=== PATIENT | female | born 1970 | race Caucasian/White ===

== ENCOUNTER 2019-08-06 08:20 | Emergency (ER) | payer OTHER ==
[~2019-08-06] VITALS: Ht 172.7 cm; Wt 100.2 kg
[2019-08-06 08:24] VITALS: BP 138/103; Ht 172.7 cm; Wt 100.2 kg
== END 2019-08-06 09:11 | disposition home or self-care (01) ==
LOC: ED 08:20
DX: K08.89 Other specified disorders of teeth and supporting structures (principal); J45.909 Unspecified asthma, uncomplicated

== ENCOUNTER 2019-09-22 21:12 | Emergency (ER) | payer OTHER ==
[~2019-09-22] VITALS: Ht 172.7 cm; Wt 101.2 kg
[2019-09-22 21:17] VITALS: BP 137/90
== END 2019-09-22 22:26 | disposition home or self-care (01) ==
LOC: ED 21:12
DX: Z76.0 Encounter for issue of repeat prescription (principal); F41.9 Anxiety disorder, unspecified; J45.909 Unspecified asthma, uncomplicated

== ENCOUNTER 2019-10-14 21:53 | Emergency (ER) | payer OTHER ==
[~2019-10-14] VITALS: Ht 172.7 cm; Wt 102.5 kg
[2019-10-14 21:58] VITALS: Ht 172.7 cm; Wt 102.5 kg
[2019-10-14 22:37] VITALS: BP 144/71
== END 2019-10-14 22:37 | disposition home or self-care (01) ==
LOC: ED 21:53
DX: K04.7 Periapical abscess without sinus (principal); F41.9 Anxiety disorder, unspecified; J45.909 Unspecified asthma, uncomplicated; Z98.51 Tubal ligation status

== ENCOUNTER 2019-10-31 17:36 | Emergency (ER) | payer OTHER ==
[~2019-10-31] VITALS: Ht 175.3 cm; Wt 102.5 kg
[2019-10-31 17:56] VITALS: Ht 175.3 cm; Wt 102.5 kg
[2019-10-31 19:06] VITALS: BP 139/101
== END 2019-10-31 19:06 | disposition home or self-care (01) ==
LOC: ED 17:36
DX: K08.89 Other specified disorders of teeth and supporting structures (principal); R21 Rash and other nonspecific skin eruption; B02.9 Zoster without complications; J45.909 Unspecified asthma, uncomplicated; F41.9 Anxiety disorder, unspecified; Z98.51 Tubal ligation status

== ENCOUNTER 2019-12-05 16:21 | Emergency (ER) | payer OTHER ==
[~2019-12-05] VITALS: Ht 172.7 cm; Wt 105.2 kg
[2019-12-05 16:24] VITALS: Ht 172.7 cm; Wt 105.2 kg
[2019-12-05 17:16] LABS: BASOPHIL % 0.6 % (0-2); PLATELET COUNT 275 x10^3mcL (130-400); RED CELL DISTRIBUTION WIDTH 14.6 % (11.5-14.5)
[2019-12-05 17:46] LABS: ALBUMIN 3.6 g/dL (3.4-5.0); ALKALINE PHOSPHATASE 76 U/L (46-116); ALT/SGPT 17 U/L (14-59); AST/SGOT 16 U/L (15-37); BILIRUBIN TOTAL 0.28 mg/dL (0.20-1.00); CALCIUM 8.6 mg/dL (8.5-10.1); CARBON DIOXIDE 31.5 mmol/L (21-32); CHLORIDE SERUM 106 mmol/L (98-107); CREATININE SERUM 0.9 mg/dL (0.6-1.0); GFR1 > 60 mL/min; GLUCOSE SERUM 82 mg/dL (74-106); POTASSIUM SERUM 4.2 mmol/L (3.5-5.1); SODIUM SERUM 143 mmol/L (136-145); TOTAL PROTEIN, SERUM 7.2 g/dL (6.4-8.2)
[2019-12-05 17:54] LABS: FREE T4 0.73 ng/dL (0.76-1.46); FREE THYROXINE INDEX 2.5 ug/dL (1.4-4.5); T4(THYROXINE) 7.9 ug/dL (4.7-13.3)
[2019-12-05 18:13] LABS: T3 TOTAL 0.89 ng/mL
[2019-12-05 18:38] LABS: UA SPECIFIC GRAVITY >=1.030 (1.005-1.035); microscopic required? YES; urine erythrocyte 2+ (NEGATIVE)
[2019-12-05 19:13] LABS: AMPHETAMINE QUAL UR POSITIVE (See below)
[2019-12-05 19:40] VITALS: BP 125/74
== END 2019-12-05 19:40 | disposition home or self-care (01) ==
LOC: ED 16:21
PROVIDERS: Emergency Medicine
DX: R60.0 Localized edema (principal); J45.909 Unspecified asthma, uncomplicated; Z98.51 Tubal ligation status
CPT/HCPCS: 36415; 83880; 84439; Q0092

== ENCOUNTER 2020-01-11 13:10 | Emergency (ER) | payer OTHER ==
[~2020-01-11] VITALS: Ht 172.7 cm; Wt 103.9 kg
[2020-01-11 13:16] VITALS: BP 163/97; Ht 172.7 cm; Wt 103.9 kg
== END 2020-01-11 14:36 | disposition left against medical advice (07) ==
LOC: ED 13:10
DX: Z53.21 Procedure and treatment not carried out due to patient leaving prior to being seen by health care provider (principal)

== ENCOUNTER 2020-01-12 00:13 | Emergency (ER) | payer OTHER ==
[~2020-01-12] VITALS: Ht 170.2 cm; Wt 103.9 kg
[2020-01-12 00:20] VITALS: BP 146/98; Ht 170.2 cm; Wt 103.9 kg
== END 2020-01-12 01:20 | disposition home or self-care (01) ==
LOC: ED 00:13
DX: R21 Rash and other nonspecific skin eruption (principal); L29.9 Pruritus, unspecified; J45.909 Unspecified asthma, uncomplicated; Z98.51 Tubal ligation status; Z98.890 Other specified postprocedural states

== ENCOUNTER 2020-03-19 11:14 | Emergency (ER) | payer OTHER ==
[~2020-03-19] VITALS: Ht 172.7 cm; Wt 106.1 kg
[2020-03-19 11:19] VITALS: Ht 172.7 cm; Wt 106.1 kg
[2020-03-19 12:42] VITALS: BP 148/96
== END 2020-03-19 12:42 | disposition home or self-care (01) ==
LOC: ED 11:14
DX: K02.9 Dental caries, unspecified (principal); J45.909 Unspecified asthma, uncomplicated
CPT/HCPCS: J2270

== ENCOUNTER 2020-04-21 00:03 | Inpatient (IN) | payer OTHER ==
[~2020-04-21] VITALS: Ht 170.2 cm; Wt 120.2 kg
[2020-04-21 00:12] VITALS: Ht 170.2 cm; Wt 120.2 kg
[2020-04-21 00:37] LABS: BASOPHIL % 0 % (0-2); PLATELET COUNT 248 x10^3mcL (130-400); RED CELL DISTRIBUTION WIDTH 14.5 % (11.5-14.5)
[2020-04-21 00:50] LABS: CALCIUM 8.7 mg/dL (8.5-10.1); CARBON DIOXIDE 28.4 mmol/L (21-32); CHLORIDE SERUM 105 mmol/L (98-107); CREATININE SERUM 1.1 mg/dL (0.6-1.0); GFR1 55 mL/min; GLUCOSE SERUM 142 mg/dL (74-106); POTASSIUM SERUM 3.6 mmol/L (3.5-5.1); SODIUM SERUM 140 mmol/L (136-145)
[2020-04-21 00:54] LABS: ALBUMIN 3.8 g/dL (3.4-5.0); ALKALINE PHOSPHATASE 62 U/L (46-116); ALT/SGPT 23 U/L (14-59); AST/SGOT 16 U/L (15-37); BILIRUBIN TOTAL 0.52 mg/dL (0.20-1.00); C REACTIVE PROTEIN 1.4 mg/dL (<=0.9); TOTAL PROTEIN, SERUM 7.2 g/dL (6.4-8.2)
[2020-04-21 02:26] LABS: UA SPECIFIC GRAVITY >=1.030 (1.005-1.035); microscopic required? YES; urine erythrocyte NEGATIVE (NEGATIVE)
[2020-04-21 02:38] LABS: AMPHETAMINE QUAL UR POSITIVE (See below)
[2020-04-21] MEDS ORDERED: SILENOR6 MG PO (03:02)
[2020-04-21] MEDS ORDERED: ZOFRAN4 M3 PO (03:03)
[2020-04-21] MEDS ORDERED: IPRATROPIUM BRO15 M1 INH (03:04)
[2020-04-21] MEDS ORDERED: QVAR REDIHALE10.6 G1 INH (03:05)
[2020-04-21] MEDS ORDERED: PROAIR RES117 MCG/Ac INH (03:05)
[2020-04-21 04:30] LABS: CHOLESTEROL/HDL RATIO 3.2
[2020-04-21 04:37] LABS: FREE T4 1.06 ng/dL (0.76-1.46); FREE THYROXINE INDEX 2.9 ug/dL (1.4-4.5); T3 TOTAL 0.86 ng/mL; T4(THYROXINE) 9.1 ug/dL (4.7-13.3)
[2020-04-21 05:23] LABS: BASOPHIL % 0.6 % (0-2); PLATELET COUNT 219 x10^3mcL (130-400); RED CELL DISTRIBUTION WIDTH 14.1 % (11.5-14.5)
[2020-04-21 05:43] LABS: CALCIUM 8.1 mg/dL (8.5-10.1); CARBON DIOXIDE 27.3 mmol/L (21-32); CHLORIDE SERUM 109 mmol/L (98-107); CREATININE SERUM 0.9 mg/dL (0.6-1.0); GFR1 > 60 mL/min; GLUCOSE SERUM 132 mg/dL (74-106); POTASSIUM SERUM 4.2 mmol/L (3.5-5.1); SODIUM SERUM 140 mmol/L (136-145)
[2020-04-21 23:00] VITALS: BP 136/78
[2020-04-22 06:11] VITALS: BP 112/69
[2020-04-22 07:40] LABS: BASOPHIL % 0.4 % (0-2); PLATELET COUNT 206 x10^3mcL (130-400); RED CELL DISTRIBUTION WIDTH 14.3 % (11.5-14.5)
[2020-04-22 08:09] LABS: CALCIUM 7.5 mg/dL (8.5-10.1); CARBON DIOXIDE 23.7 mmol/L (21-32); CHLORIDE SERUM 111 mmol/L (98-107); CREATININE SERUM 0.8 mg/dL (0.6-1.0); GFR1 > 60 mL/min; GLUCOSE SERUM 79 mg/dL (74-106); MAGNESIUM 2.2 mg/dL (1.8-2.4); PHOSPHOROUS 3.5 mg/dL (2.5-4.9); POTASSIUM SERUM 3.2 mmol/L (3.5-5.1); SODIUM SERUM 143 mmol/L (136-145)
[2020-04-22 12:51] VITALS: BP 119/73
[2020-04-22 17:27] VITALS: BP 107/69; BP 114/73
[2020-04-22 20:46] VITALS: BP 119/72
[2020-04-23 05:20] VITALS: BP 104/57
[2020-04-23 06:35] LABS: CALCIUM 7.8 mg/dL (8.5-10.1); CARBON DIOXIDE 25.6 mmol/L (21-32); CHLORIDE SERUM 111 mmol/L (98-107); CREATININE SERUM 0.8 mg/dL (0.6-1.0); GFR1 > 60 mL/min; GLUCOSE SERUM 98 mg/dL (74-106); POTASSIUM SERUM 3.6 mmol/L (3.5-5.1); SODIUM SERUM 141 mmol/L (136-145)
[2020-04-23 06:42] LABS: BASOPHIL % 0.5 % (0-2); PLATELET COUNT 195 x10^3mcL (130-400); RED CELL DISTRIBUTION WIDTH 14.7 % (11.5-14.5)
[2020-04-23 08:18] VITALS: BP 121/81
[2020-04-23 12:11] VITALS: BP 110/78
[2020-04-23 16:46] VITALS: BP 109/72
[2020-04-23 20:30] VITALS: BP 125/82
[2020-04-24 05:19] VITALS: BP 118/72
[2020-04-24 07:10] LABS: CALCIUM 7.9 mg/dL (8.5-10.1); CARBON DIOXIDE 26.4 mmol/L (21-32); CHLORIDE SERUM 107 mmol/L (98-107); CREATININE SERUM 0.8 mg/dL (0.6-1.0); GFR1 > 60 mL/min; GLUCOSE SERUM 91 mg/dL (74-106); POTASSIUM SERUM 3.8 mmol/L (3.5-5.1); SODIUM SERUM 140 mmol/L (136-145)
[2020-04-24 07:34] LABS: BASOPHIL % 0.5 % (0-2); PLATELET COUNT 180 x10^3mcL (130-400); RED CELL DISTRIBUTION WIDTH 14.4 % (11.5-14.5)
[2020-04-24 07:46] VITALS: BP 141/88
[2020-04-24 11:53] VITALS: BP 134/88
[2020-04-24 17:33] VITALS: BP 122/82
[2020-04-24 21:08] VITALS: BP 144/88
[2020-04-25 05:58] VITALS: BP 124/69
[2020-04-25 08:21] VITALS: BP 137/89
[2020-04-25 12:06] VITALS: BP 133/88
[2020-04-25 16:16] VITALS: BP 127/82
[2020-04-25 20:50] VITALS: BP 129/89
[2020-04-26 05:49] VITALS: BP 134/87
[2020-04-26 07:21] LABS: BASOPHIL % 0.4 % (0-2); CALCIUM 8.4 mg/dL (8.5-10.1); CARBON DIOXIDE 28.3 mmol/L (21-32); CHLORIDE SERUM 104 mmol/L (98-107); CREATININE SERUM 0.7 mg/dL (0.6-1.0); GFR1 > 60 mL/min; GLUCOSE SERUM 84 mg/dL (74-106); PLATELET COUNT 193 x10^3mcL (130-400); POTASSIUM SERUM 4.3 mmol/L (3.5-5.1); SODIUM SERUM 138 mmol/L (136-145)
[2020-04-26 08:36] VITALS: BP 129/76
[2020-04-26 13:29] VITALS: BP 129/76
== END 2020-04-26 15:20 | disposition home or self-care (01) | DRG 812 ==
LOC: ED 00:03 → DU 02:32 → MU 04-24 17:04
PROVIDERS: Emergency Medicine; Internal Medicine; ADMIT Family Medicine; ATTEND Family Medicine
DX: T43.621A Poisoning by amphetamines, accidental (unintentional), initial encounter (principal); N17.0 Acute kidney failure with tubular necrosis; G92 Toxic encephalopathy; J45.909 Unspecified asthma, uncomplicated; F41.9 Anxiety disorder, unspecified; Z98.51 Tubal ligation status; Y92.89 Other specified places as the place of occurrence of the external cause
CPT/HCPCS: 82962; 83880; 84439; 92526-GN; 92610-GN; G0378; G0480; J0133; J3370; J3475; J7030; J7060; Q0092

== ENCOUNTER 2020-05-17 19:03 | Emergency (ER) | payer OTHER ==
[~2020-05-17] VITALS: Ht 172.7 cm; Wt 113.4 kg
[~2020-05-17 19:03] MED LIST: IPRATROPIUM BRO15 M1 INH; PROAIR RES117 MCG/Ac INH; QVAR REDIHALE10.6 G1 INH; SILENOR6 MG PO; ZOFRAN4 M3 PO
[2020-05-17 20:00] VITALS: Ht 172.7 cm; Wt 113.4 kg
[2020-05-18 11:50] VITALS: BP 115/78
== END 2020-05-18 11:50 | disposition home or self-care (01) ==
LOC: ED 19:03
DX: F41.9 Anxiety disorder, unspecified (principal); Z98.51 Tubal ligation status; Z98.890 Other specified postprocedural states; J45.909 Unspecified asthma, uncomplicated; Y04.8XXA Assault by other bodily force, initial encounter; Y93.89 Activity, other specified; Y92.89 Other specified places as the place of occurrence of the external cause; Y99.8 Other external cause status

== ENCOUNTER 2020-10-18 14:57 | Emergency (ER) | payer OTHER ==
[~2020-10-18] VITALS: Ht 172.7 cm; Wt 108.4 kg
[2020-10-18 15:23] VITALS: BP 130/82
== END 2020-10-18 18:43 | disposition home or self-care (01) ==
LOC: ED 14:57
DX: M54.6 Pain in thoracic spine (principal); J45.909 Unspecified asthma, uncomplicated; Z98.51 Tubal ligation status; Z98.890 Other specified postprocedural states; Z59.0 Homelessness

== ENCOUNTER 2020-11-10 16:41 | Emergency (ER) | payer OTHER, SELFPAY ==
[~2020-11-10] VITALS: Ht 172.7 cm; Wt 103.0 kg
[2020-11-10 16:44] VITALS: Ht 172.7 cm; Wt 103.0 kg
[2020-11-10 18:15] VITALS: BP 133/71
== END 2020-11-10 18:15 | disposition home or self-care (01) ==
LOC: ED 16:41
DX: J45.901 Unspecified asthma with (acute) exacerbation (principal); Z20.828 Contact with and (suspected) exposure to other viral communicable diseases; Z98.51 Tubal ligation status; Z98.890 Other specified postprocedural states
CPT/HCPCS: U0003